=== PATIENT | male | born 1985 | race African-American/Black ===

== ENCOUNTER 2016-04-13 05:46 | Day surgery (SDC) | payer OTHER ==
[2016-04-13] MEDS ORDERED: LR 1,000 ML IV ONE (06:48)
[2016-04-13] MEDS ORDERED: LIDOCAINE 1% 5 ML SDV ID PRN (06:48)
[2016-04-13] MEDS ORDERED: LIDO/BUPIVA/morphINE 15ML SYR IU ONE (07:00)
[2016-04-13] MEDS ORDERED: ceFAZolin 3 GM in D5W 100 ML IV ONE (07:00)
[2016-04-13] MEDS ORDERED: LIDO/BUPIVA 10ML SYR IU ONE (07:00)
[2016-04-13] MEDS ORDERED: CHLORHEXIDINE GLUC HIBICLENS 118 ML BTL TP ONE (07:00)
[2016-04-13] MEDS ORDERED: LIDO/BUPIVA/NS 60ML SYR IU ONE (07:00)
[2016-04-13] MEDS ORDERED: LIDOCAINE/BUP/NS KNEE 60 ML SYR ONE (07:05)
[2016-04-13] MEDS ORDERED: LIDOCAINE/BUPIVICAINE 10 ML SYR ONE (07:06)
[2016-04-13] MEDS ORDERED: MIDAZOLAM 2 MG/2 ML VIAL ONE (07:14)
[2016-04-13] MEDS ORDERED: PROPOFOL/EMULSION 500 MG/50 ML BOTTLE IV ONE (07:18)
[2016-04-13] MEDS ORDERED: fentaNYL 250 MCG/5 ML INJ ONE (07:18)
[2016-04-13] MEDS ORDERED: ROCURONIUM 50 MG/5 ML VIAL ONE (07:47)
[2016-04-13] MEDS ORDERED: METOCLOPRAMIDE 10 MG/2 ML VIAL ONE (07:47)
[2016-04-13] MEDS ORDERED: ONDANSETRON 4 MG/2 ML VIAL ONE ×2 (07:47→07:48)
[2016-04-13] MEDS ORDERED: DEXAMETHASONE 4 MG/ML VIAL ONE ×2 (07:47→07:48)
[2016-04-13] MEDS ORDERED: KETOROLAC 30 MG/1 ML SDV ONE (07:47)
[2016-04-13] MEDS ORDERED: SUGAMMADEX SODIUM 200 MG/2 ML VIAL IVP ONE (07:47)
[2016-04-13] MEDS ORDERED: LIDOCAINE 2% 5 ML SDV ONE (08:00)
[2016-04-13] MEDS ORDERED: OXYCODONE/APAP 5/325 TAB ONE (09:21)
--- NOTE | 2016-04-13 09:50 | GOP ---
DATE OF OPERATION: 04/13/2016 SURGEON: Grady Tapia MD DATA PROCESSING SPECIALIST: KATIA Dodd. ANESTHESIA: General. Patient positioned supine. 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 PROCEDURE PERFORMED: Arthroscopic debridement of trochlea and removal of loose cartilage pieces, CPT code 2977. FINDINGS: 1. Patella with small grade 2 changes in the midline. 2. A 10 mm wide and 30 mm long trochlear defect on the lateral upper trochlea with loose cartilage edges and numerous loose cartilage pieces throughout the knee. 3. Medial femoral condyle. Small grade 2 change on the flexor surface. 4. Normal medial tibial plateau. 5. Normal medial meniscus. 6. Intact ACL. 7. Normal lateral femoral condyle. 8. Normal lateral tibial plateau. 9. Normal lateral meniscus. TOURNIQUET TIME: Zero minutes. INDICATIONS: Patient is a 30-year-old with persistent right knee pain. Hurt this while at work. Was found to have a trochlear lesion. Has had persistent pain. Had options discussed and desired to go ahead with an arthroscopic debridement. Understood the potential risks and benefits including but not limited to bleeding, infection, persistent pain, stiffness, anesthetic risks. DESCRIPTION OF PROCEDURE: Patient was taken to the operating room. After undergoing successful general anesthesia, the right lower extremity was prepped and draped in the usual sterile manner. Anatomic landmarks were identified. The anterior lateral and anterior medial portal sites were injected with 0.25% Marcaine and 1% lidocaine. The knee was injected with the same. Anterolateral portal was made. The arthroscope placed in the joint. With the arthroscope in the joint, an anteromedial portal was made. The probe was placed. Findings are described above. The loose cartilage pieces were identified. These were subsequently debrided and flushed out. The knee was thoroughly examined. The main finding was the trochlear defect. This had loose cartilage edges. The edges were debrided back to a stable base. The exposed surface was abraded. The area was then thoroughly irrigated, and small debris was flushed out again. After thoroughly flushing out the knee, the portal sites were closed using 2- 0 nylon suture. The knee was injected with 0.25% Marcaine, 1% lidocaine and 5 mg of Duramorph. The patient had a sterile dressing. Patient was awakened and taken to the recovery room in stable condition. Sponge, instrument and needle counts were correct. PLAN: The patient to undergo physical therapy with emphasis on range of motion and strengthening. Will be a candidate for viscosupplementation in the future and will need extensive patellofemoral physical therapy. Copy requested to: Farshad Brown, Worker's Compensation [facility] [place] /[id number]/[id number]
== END 2016-04-13 10:12 | disposition home or self-care (01) ==
LOC: FSGY 05:46
PROVIDERS: ATTEND Orthopaedic Surgery Sports Medicine
PROC: 0SBC4ZX Excision of Right Knee Joint, Percutaneous Endoscopic Approach, Diagnostic (ICD-10-PCS; principal; 2016-04-13 07:15)
DX: M95.8 Other specified acquired deformities of musculoskeletal system (principal)
CPT/HCPCS: J0171; J0690; J1100; J1885; J2250; J2274; J2405; J2704; J2765; J3010